=== PATIENT | female | born 2000 | race Caucasian/White ===

== ENCOUNTER 2020-08-25 06:32 | Emergency (ER) | payer OTHER ==
[2020-08-25 07:12] LABS: HEMOGLOBIN 13.9 gm/dl (12.3-15.3); RED BLOOD COUNT 4.55 M/UL (4.00-5.10); WHITE BLOOD COUNT 11.4 K/UL (4.5-11.0)
[2020-08-25 08:11] LABS: BUN/CREATININE RATIO 11 (0-10)
[2020-08-25] MEDS ORDERED: PROTONIX40 MG PO (09:33)
== END 2020-08-25 09:45 | disposition home or self-care (01) ==
LOC: ER1 06:32
DX: R07.9 Chest pain, unspecified (principal); R10.9 Unspecified abdominal pain; F17.200 Nicotine dependence, unspecified, uncomplicated
CPT/HCPCS: 71045; 80053; 81001; 82550; 82553; 83690; 83874; 84484; 84703; 85025; 93005; 96374; 99285; C9113

== ENCOUNTER 2020-12-04 04:07 | Emergency (ER) | payer OTHER ==
[~2020-12-04 04:07] MED LIST: PROTONIX40 MG PO
[2020-12-04 05:33] LABS: HEMOGLOBIN 13.2 gm/dl (12.3-15.3); RED BLOOD COUNT 4.3 M/UL (4.00-5.10); WHITE BLOOD COUNT 16.9 K/UL (4.5-11.0)
[2020-12-04 05:51] LABS: BUN/CREATININE RATIO 10 (0-10)
== END 2020-12-04 08:20 | disposition home or self-care (01) ==
LOC: ER1 04:07
PROVIDERS: Internal Medicine
DX: R10.84 Generalized abdominal pain (principal); R11.2 Nausea with vomiting, unspecified; G89.29 Other chronic pain; F17.290 Nicotine dependence, other tobacco product, uncomplicated
CPT/HCPCS: 80053; 80307; 81001; 83690; 84703; 85025; 96374; 96375; 99284; J2270; J2405; J7040; J7120; Q9967

== ENCOUNTER 2021-01-28 20:05 | Emergency (ER) | payer OTHER | END 2021-01-28 23:50 | disposition left against medical advice (07) | LOC: ER1 20:05 | DX: Z53.21 Procedure and treatment not carried out due to patient leaving prior to being seen by health care provider (principal) ==

== ENCOUNTER 2021-03-05 15:18 | Emergency (ER) | payer OTHER ==
[2021-03-05] MEDS ORDERED: PRILOSEC OTC20 MG PO (16:35)
[2021-03-05] MEDS ORDERED: ZOFRAN ODT 4 MG4 MG SL (16:35)
== END 2021-03-05 16:50 | disposition home or self-care (01) ==
LOC: ER1 15:18
DX: K21.00 Gastro-esophageal reflux disease with esophagitis, without bleeding (principal)
CPT/HCPCS: 99283

== ENCOUNTER 2021-03-23 05:57 | Emergency (ER) | payer OTHER ==
[~2021-03-23 05:57] MED LIST changes: +PRILOSEC OTC20 MG PO; +ZOFRAN ODT 4 MG4 MG SL
[2021-03-23 07:44] LABS: HEMOGLOBIN 13.4 gm/dl (12.3-15.3); RED BLOOD COUNT 4.27 M/UL (4.00-5.10); WHITE BLOOD COUNT 9.4 K/UL (4.5-11.0)
[2021-03-23 07:51] LABS: BUN/CREATININE RATIO 9 (0-10)
[2021-03-30] MEDS ORDERED: PRILOSEC PO (13:50)
== END 2021-03-23 10:05 | disposition home or self-care (01) ==
LOC: ER1 05:57
PROVIDERS: Family Medicine
DX: K80.70 Calculus of gallbladder and bile duct without cholecystitis without obstruction (principal)
CPT/HCPCS: 71045; 76705; 80053; 81001; 82550; 82553; 83690; 83874; 84484; 84703; 85025; 93005; 96374; 96375; 99284; J2270; J2405